=== PATIENT | female | born 1975 | race American Indian/Alaskan Native ===

== ENCOUNTER 2017-02-06 21:55 | Emergency (ER) | payer MEDICAID ==
[2017-02-06 23:31] LABS: Basophils % (Auto) 1.1 % (0.0-1.8); Eosinophils % (Auto) 3.2 % (0.0-4.3); Hematocrit 38.9 % (30.3-42.9); Hemoglobin 12.9 gm/dl (10.1-14.3); Mean Corpuscular HGB Conc 33 % (30-34); Mean Corpuscular Hemoglobin 31 pg (28-32); Mean Corpuscular Volume 92 fl (79-97); Platelet Count 221 K/mm3 (140-440); Red Blood Count 4.22 M/mm3 (3.65-5.03); White Blood Count 11.7 K/mm3 (4.5-11.0)
[2017-02-06 23:39] LABS: INR 0.9 (0.87-1.13)
[2017-02-06 23:40] LABS: Partial Thromboplastin Time 29.9 Sec. (24.2-36.6)
[2017-02-07 00:12] LABS: Creatine Kinase MB 1.1 ng/mL (0.0-4.0)
[2017-02-07 00:19] LABS: Anion Gap 16 mmol/L; Blood Urea Nitrogen 12 mg/dL (7-17); Calcium 9.4 mg/dL (8.4-10.2); Carbon Dioxide 24 mmol/L (22-30); Glucose 96 mg/dL (65-100); Potassium 4.1 mmol/L (3.6-5.0); Sodium 138 mmol/L (137-145)
[2017-02-07 00:45] VITALS: BP 149/94
== END 2017-02-07 01:50 | disposition left against medical advice (07) ==
LOC: ED 21:55
DX: M79.602 Pain in left arm (principal); R06.02 Shortness of breath; Z53.21 Procedure and treatment not carried out due to patient leaving prior to being seen by health care provider
CPT/HCPCS: 36415; 80048; 82550; 82553; 83735; 84484; 84703; 85025; 85610; 85730; 93005; 93010

== ENCOUNTER 2017-08-30 11:09 | Emergency (ER) | payer SELFPAY | END 2017-08-30 11:10 | disposition left against medical advice (07) | LOC: ED 11:09 | DX: Z53.21 Procedure and treatment not carried out due to patient leaving prior to being seen by health care provider (principal) ==